=== PATIENT | male | born 1995 | race Caucasian/White ===

== ENCOUNTER 2017-04-05 12:50 | Inpatient (IN) | payer OTHER ==
[~2017-04-05] VITALS: Ht 172.7 cm; Wt 73.2 kg
[2017-04-05 14:00] LABS: PLATELET COUNT 235 x10^3mcL (130-400); RED CELL DISTRIBUTION WIDTH 14.5 % (11.5-14.5)
[2017-04-05 14:02] LABS: BASOPHIL % 2.9 % (0-2)
[2017-04-05 14:08] LABS: CALCIUM 9.1 mg/dL (8.5-10.1); CARBON DIOXIDE 29.5 mmol/L (21-32); CHLORIDE SERUM 104 mmol/L (98-107); CREATININE SERUM 0.8 mg/dL (0.7-1.3); GFR1 > 60 mL/min; GLUCOSE SERUM 91 mg/dL (74-106); POTASSIUM SERUM 3.5 mmol/L (3.5-5.1); SODIUM SERUM 140 mmol/L (136-145)
[2017-04-05 14:12] LABS: ALBUMIN 4.1 g/dL (3.4-5.0); ALKALINE PHOSPHATASE 68 U/L (46-116); ALT/SGPT 38 U/L (16-63); AST/SGOT 25 U/L (15-37); TOTAL PROTEIN, SERUM 8.1 g/dL (6.4-8.2)
[2017-04-05 14:17] LABS: AMPHETAMINE QUAL UR NONE DETECTED (NEG <=1000)
[2017-04-05 17:44] VITALS: BP 125/85
[2017-04-05 20:59] VITALS: BP 126/74
[2017-04-06 05:52] VITALS: BP 121/66
[2017-04-06 06:39] LABS: BASOPHIL % 0.7 % (0-2); PLATELET COUNT 233 x10^3mcL (130-400); RED CELL DISTRIBUTION WIDTH 14.3 % (11.5-14.5)
[2017-04-06 06:54] LABS: CALCIUM 8.9 mg/dL (8.5-10.1); CARBON DIOXIDE 28.5 mmol/L (21-32); CHLORIDE SERUM 105 mmol/L (98-107); CREATININE SERUM 0.8 mg/dL (0.7-1.3); GFR1 > 60 mL/min; GLUCOSE SERUM 83 mg/dL (74-106); POTASSIUM SERUM 3.7 mmol/L (3.5-5.1); SODIUM SERUM 140 mmol/L (136-145)
[2017-04-06 09:27] VITALS: BP 135/72
[2017-04-06 13:53] VITALS: BP 115/61
[2017-04-06 15:29] VITALS: BP 115/61
== END 2017-04-06 16:57 | disposition home or self-care (01) | DRG 812 ==
LOC: ED 12:50 → DU 15:17
PROVIDERS: Emergency Medicine; ADMIT Internal Medicine Pulmonary Disease
DX: T42.4X2A Poisoning by benzodiazepines, intentional self-harm, initial encounter (principal); F33.9 Major depressive disorder, recurrent, unspecified; F12.10 Cannabis abuse, uncomplicated; Y92.018 Other place in single-family (private) house as the place of occurrence of the external cause; F41.1 Generalized anxiety disorder
CPT/HCPCS: G0480

== ENCOUNTER 2018-12-04 00:28 | Emergency (ER) | payer OTHER ==
[~2018-12-04] VITALS: Ht 175.3 cm; Wt 81.6 kg
[2018-12-04 00:38] VITALS: Ht 175.3 cm; Wt 81.6 kg
[2018-12-04 01:27] LABS: BASOPHIL % 0.6 % (0-2); PLATELET COUNT 265 x10^3mcL (130-400); RED CELL DISTRIBUTION WIDTH 13.5 % (11.5-14.5)
[2018-12-04 01:32] LABS: CALCIUM 9.6 mg/dL (8.5-10.1); CARBON DIOXIDE 24.9 mmol/L (21-32); CHLORIDE SERUM 103 mmol/L (98-107); CREATININE SERUM 1.2 mg/dL (0.7-1.3); GFR1 > 60 mL/min; GLUCOSE SERUM 92 mg/dL (74-106); POTASSIUM SERUM 3.4 mmol/L (3.5-5.1); SODIUM SERUM 140 mmol/L (136-145)
[2018-12-04 01:37] LABS: ALBUMIN 4.2 g/dL (3.4-5.0); ALKALINE PHOSPHATASE 69 U/L (46-116); ALT/SGPT 73 U/L (16-63); AST/SGOT 42 U/L (15-37); BILIRUBIN TOTAL 2.67 mg/dL (0.20-1.00); TOTAL PROTEIN, SERUM 7.9 g/dL (6.4-8.2)
[2018-12-04 05:25] LABS: UA SPECIFIC GRAVITY >=1.030 (1.005-1.035); microscopic required? YES; urine erythrocyte NEGATIVE (NEGATIVE)
[2018-12-04 05:32] LABS: AMPHETAMINE QUAL UR POSITIVE (See below)
--- NOTE | 2018-12-04 07:12 | NUR ---
Packet received via fax by [facility]. Pt packet has been faxed to [facility], [facility], and [facility]. All state no beds available at this time, will follow up later today for pending d/c's. Will continue to look for placement.
--- NOTE | 2018-12-04 15:25 | NUR ---
Contacted [facility]. She stated there are open beds. Packet faxed to [facility] for review, they will contact if pt is accepted.
[2018-12-04 22:32] VITALS: BP 119/58
== END 2018-12-04 22:32 ==
LOC: ED 00:28
PROVIDERS: Emergency Medicine
DX: T50.991A Poisoning by other drugs, medicaments and biological substances, accidental (unintentional), initial encounter (principal); F41.9 Anxiety disorder, unspecified; R79.89 Other specified abnormal findings of blood chemistry; Y92.89 Other specified places as the place of occurrence of the external cause
CPT/HCPCS: C9113; G0480; J2270; J7030; Q0092; Q0162